=== PATIENT | female | born 1955 | race Caucasian/White ===

== ENCOUNTER 2016-08-13 05:52 | Day surgery (SDC) | payer OTHER ==
[~2016-08-13] VITALS: Ht 165.1 cm; Wt 144.0 kg
[~2016-08-13 05:52] MED LIST: ESTR42.52 VAGINAL; FEXO-15 PO; FLUT9.9S NS; FOSI20TA3 PO; HYDR12.5 PO; INSU100V7 SUBQ; LEVO50TA6 PO; LOVA40TA PO; Lactated Ringer's 1,000 ML IV ONE; MECL-114 PO; METF500T4 PO; METO50TA7 PO
[2016-08-13] MEDS ORDERED: Dexamethasone 4 mg/mL Inj ONE (05:53)
[2016-08-13] MEDS ORDERED: Propofol 10,000 mCg/mL 20 mL Inj ONE (05:53)
[2016-08-13] MEDS ORDERED: fentaNYL-PF 50 mCg/mL 2 mL Inj ONE (05:53)
[2016-08-13] MEDS ORDERED: CeFAZolin Inj 2 GM in IV Premix 1 EACH IV SCH (06:00)
[2016-08-13] MEDS ORDERED: CeFAZolin 2 Gm/50 mL D5W Duplex Bag IV ONE (06:19)
[2016-08-13 06:20] VITALS: BP 156/78; PULSE 92; RESP 16; O2SAT 97
--- NOTE | 2016-08-13 06:46 | PCM.HPANE ---
Patient Data Surgeon Admitting Provider: Attending Provider:Delmer Lake MD Primary Care Physician:Chloe King MD Other Provider:Velma Schaferingham Anesthesia Reason for Visit Left Breast Cancer Ht/WT & BMI Height (Feet): 5 Height (Inches): 5 Weight (Kilograms): 144 Body Mass Index 52.00 Allergies Coded Allergies: No Known Allergies (Unverified , 08/08/16) Past Anesthesia History Anesthesia History: Positive for:: Anesthesia Reactions (AGGRESSION W/ ANESTHETIC (??BEGINS W/ "R"??)), Denies:: Malignant Hyperthermia Diabetes History Hx Diabetes?: Yes Type of Diabetes: Type II Glycemic Control: Insulin & Oral Medication Current Bedside Blood Glucose: 125 MRSA MRSA: No Medications Hypertension Medication: Yes (HCTZ,FOSOPRIL) Home Meds Incl Beta Merrill: Yes Date Beta Merrill Taken: Aug 12, 2016 Time Beta Merrill Taken: 2300 Reported Medications Estradiol (Estrace)42.5 Gm Cream.appl1 G VAGINAL DIRECTED PRN HEALTH #1 TUBE Ref 0 08/08/16 Metoprolol Succinate ER (Toprol XL)50 Mg Drnmbe78 Mg PO BID Ref 0 08/08/16 Fluticasone Propionate (Flonase Allergy Relief)50 Mcg/Actuation [place].susp9.9 Ml NS DAILY 08/08/16 Fexofenadine (Marilee Allergy)60 Mg Fzhjaj58 Mg PO DAILY 08/08/16 Insulin Glargine (Lantus U100 Insulin Vial)100 Unit/Ml Vial55 SUBQ BID #1 VIAL Ref 0 08/02/16 Metformin 500 Mg Oyzytj914 Mg PO BID Ref 0 07/24/16 Meclizine (Bonine)25 Mg Tab.chew25 Mg PO TID PRN prn 07/24/16 Lovastatin 40 Mg Scsufu41 Mg PO HS #30 TABLET Ref 0 07/24/16 Levothyroxine 50 Mcg Iwusvg08 Mcg PO DAILY Ref 0 07/24/16 Hydrochlorothiazide 12.5 Mg Kfsfzcp37.5 Mg PO DAILY 30 Days Ref 0 seasonal in the summer 07/24/16 Fosinopril Sodium 20 Mg Oxmmfw47 Mg PO BID 07/24/16 Discontinued Reported Medications [intramax liq cheikh] No Conflict Check1 Tsp PO DAILY 08/02/16 [vitamin d vegan] No Conflict Check1 [place] PO DAILY 08/02/16 [turkey tail] No Conflict Check1 Capsule PO DAILY 08/02/16 Lactobacillus Acidophilus (Probiotic)1 Each Capsule1 Each PO DAILY 08/02/16 History History of ENT Problems?: Yes HEENT History: Positive for:: Sinus Problem (ENVIRONMENTAL ALLERGIES) Denies:: Hearing Problem (HX OTITIS EXTERNA) Hx of Heart Problems?: Yes Cardiovascular History: Positive for:: Hypertension (HYPERLIPIDEMIA) Valvular Heart Disease (MILD-MOD ) Denies:: Heart Murmur (ECHO 07/2016 EF 60-65%) Hx of Respiratory Problem?: Yes Respiratory History: Denies:: Chest Surgery (S/P BRONCHOSCOPY-DX W/ SARCOIDOSIS IN REQ NO TREATMENT) Use of C-PAP Machine Hx Neurologic Problems?: Yes Hx of GI Problems?: Yes Other GI Pertinent History: UNINTENTIONAL WEIGHT LOSS 10# Hx of Problems?: No Female Hx: Positive for:: Problems with Breasts? (S/P LT BREAST BX LT BREAST CA/IV ACCESS=CURRENT PROBLEM) Denies:: Currently (S/P C/S X2) Endometriosis Skin History: Denies:: History Skin Disorders? Pressure Ulcers Hx Musculoskeletal Problems?: Yes Musculoskeletal History: Positive for:: Musculoskeletal Trauma (C/OF LT HIP PAIN/SCIATICA S/P LT KNEE RPR) Hx of Psycho/Social Problems?: No Hx Surgeries?: Yes (2 c-sect 1981 &1986; knee sx 1991) Hx Any Other Health Problems?: Yes Other History: Positive for:: Cancer (LT BREAST ) Thyroid Disease Denies:: Endocrine Disease Hospitalization History Blood Transfusions: Denies:: Blood Transfusions Hx Diabetes: YesBedside Blood Glucose: 125 Hx Alcohol Use: No Smoking Status: Never Smoker Have You Smoked inLast 12 mo: No Stop/Bang S-Snoring: Do You Snore Loudly: No T-Tired: feel tired, fatigued: Yes O-Obsered: Observed not breath: No P-Blood Pressure: treated: Yes B- Body Mass Index > 35 kg/m2: Yes A- Age over 50: Yes N- Neck Large Circumference: Yes G- Gender Male: No GENOVEVA Total Score: 5 GENOVEVA Risk Assessment: High Risk, =/>3 Yes GENOVEVA Category 4 OutPt Procedure: Yes Risk Assessment Category Category 1A: Patient has history of documented sleep apnea, and HAS NOT received any narcotic, sedative or anesthesia administration during this stay. Category 1B: Patient has history of documented sleep apnea, and HAS received any narcotic , sedative or anesthesia administration during this stay Category 2: Patient has SUSPECTED Obstructive Sleep Apnea, and HAS received any narcotic , sedative or anesthesia administration during this stay. Category 3: Patient has SUSPECTED Obstructive Sleep Apnea and HAS NOT received narcotic, sedative or anesthesia administration during this stay. Category 4: Outpatient in Procedural Areas with known sleep apnea or who screen positive for High Risk via the STOP/BANG questionnaire. Exam Exam Vital Signs Vital Signs Date Time Temp Pulse Resp B/P Pulse Ox O2 Delivery O2 Flow Rate FiO2 08/13/16 06:20 92 16 156/78 97 Room Air General Appearance: Alert, Oriented X3, Cooperative, No Acute Distress HEENT/AIRWAY: MP 2 Lungs: Clear to Auscultation, Normal Air Movement Heart: Exam Unremarkable, Regular Rate/Rhythm, No Murmurs/Rubs/Gallops Meds/Labs/Diagnostics Admission Meds Current Medications Lactated Ringer's (Lr) 1,000 ml @ 120 mls/hr Q8H20M ONCE IV Last administered on 08/13/16t 06:27; Start 08/13/16 at 05:00; Stop 08/13/16 at 13:19 Bedside Blood Glucose: 125 Plan Impression Patient chart reviewed, patient interviewed and anesthestic plan with risks, benefits, and alternatives discussed, and informed consent obtained. NPO Status: 0100 SIPS ASA Physical Status: ASA3 Severe Disease Anesthetic Plan: MAC Bene/Risks/Altern/Consents: Yes HP Complete Prior to Induction: Yes Other obese, hypertensive, GENOVEVA Brittney De Souza MD Aug 13, 2016 06:46
[2016-08-13] MEDS ORDERED: Bupivacaine-MPF 0.5% W/EPI 30 mL Inj INFILTRATE ONE (08:11)
[2016-08-13] MEDS ORDERED: HepLOK Flush 100 unit/mL 5 mL Inj IVFLUSH ONE (08:11)
[2016-08-13] MEDS ORDERED: Lactated Ringer's 1,000 ML IV SCH (08:28)
[2016-08-13] MEDS ORDERED: Lactated Ringer's 500 ML IV PRN (08:28)
[2016-08-13] MEDS ORDERED: fentaNYL-PF 50 mCg/mL 2 mL Inj IVPUSH PRN (08:30)
[2016-08-13] MEDS ORDERED: Dexamethasone 4 mg/mL Inj IVPUSH PRN (08:30)
[2016-08-13] MEDS ORDERED: Phenylephrine 10,000 mCg/mL Inj IVPUSH PRN (08:30)
[2016-08-13] MEDS ORDERED: MetoCLOpramide 5 mg/mL 2 mL Inj IVPUSH PRN (08:30)
[2016-08-13] MEDS ORDERED: Atropine 0.4 mg/mL Inj IVPUSH PRN (08:30)
[2016-08-13] MEDS ORDERED: Ondansetron 2 mg/mL 2 mL Inj IVPUSH PRN (08:30)
[2016-08-13] MEDS ORDERED: Labetalol 5 mg/mL 4 mL Inj IV PRN (08:30)
[2016-08-13] MEDS ORDERED: HYDROmorphone 1 mg/mL Inj IVPUSH PRN (08:30)
[2016-08-13] MEDS ORDERED: EPHEDrine Sulfate 50 mg/mL Inj IVPUSH PRN (08:30)
[2016-08-13] MEDS ORDERED: hydrALAZINE 20 mg/mL Inj IVPUSH PRN (08:30)
--- NOTE | 2016-08-13 08:49 | PCM.DISURG ---
Surgical Discharge Instruction Date of Service Aug 13, 2016 Dates of Hospitalization Date of Hospital Admission Providers Admitting Physician: Primary Care Physician: Chloe King MD Attending Physician: Delmer Lake MD Discharge Diagnosis Discharge Diagnosis Left breast cancer Diet Discharge Diet: No restrictions Activity Discharge Activity-General: No restrictions Dressing and Incisional Care Dressing Care: Allow Steri Stripes to fall off, Remove outer dressing after 24 hrs Hygiene: May shower after (24 hours) Follow Up Plan Follow Up Plan With Dr. Weeks as directed. Follow-up with Dr. Lake is only necessary if there are signs of wound infection. Call your provider for: Fever (over 101.5), Discharge @ incision, pus discharge Delmer Lake MD Aug 13, 2016 08:49
[2016-08-13] MEDS ORDERED: HYDROcodone-APAP 5-325 mg Tablet PO PRN (08:50)
--- NOTE | 2016-08-13 08:52 | PCM.SURGOP ---
Surgical Operative Report Date of Service: Aug 13, 2016 Pre Operative Diagnosis Left breast cancer Post Operative Diagnosis Same Procedure: Tunneled right internal jugular central venous catheter with power port, intraoperative ultrasound guidance, intraoperative fluoroscopy with interpretation Surgeon and Patent Prosecution Attorney: Surgeon: Delmer Lake MD Assistants: None Indication for Procedure 60-year-old woman who was diagnosed with clinical T2 N1 left breast cancer. Plans of the made to treat her with neoadjuvant chemotherapy with the hopes that she may be able to be converted to breast conserving surgery, and if not, that we could coordinate immediate breast reconstruction after mastectomy. After discussion of risks and benefits, she agreed to proceed with Port-A-Cath placement. Findings: The right internal jugular vein was patent and compressible on ultrasound. Procedure Details Procedural sedation was achieved. The right internal jugular vein was assessed with ultrasound, and found to be patent and compressible. The right neck and chest were prepped and draped in wide sterile fashion. A procedural pause was performed according to the SCOAP checklist, and all were found to be in agreement. The patient was placed in Trendelenburg position. The right neck was anesthetized with a mixture of 1% lidocaine with epinephrine and half percent Marcaine with epinephrine. Using ultrasound guidance, the right internal jugular vein was accessed with a finder needle in a single pass. The 0.018 inch wire was passed through the needle, and confirmed with fluoroscopy to be in the inferior vena cava. The micro-sheath was passed over the wire. The wire was removed, and the 0.035 inch wire was passed through the micro-sheath into the inferior vena cava, confirmed with fluoroscopy. The right chest was anesthetized with local anesthetic. A transverse incision was made, and the subcutaneous pocket was created. The port reservoir was sutured to the subcutaneous pocket with 3-0 Vicryl sutures. The tear-away sheath and dilator was passed over the wire into the vena cava, under fluoroscopic guidance. The catheter was then tunneled through the subcutaneous space to the right neck venipuncture site. The catheter was passed through the tear-away sheath and positioned at the cavoatrial junction. The tear-away sheath was removed. The catheter was cut to size, and connected to the port reservoir. The port flushed and aspirated easily. A final fluoroscopic view of the catheter was obtained with the patient flat. The port was flushed with a final heparin flush , 100 units per mL. The subcutaneous pocket and venipuncture site in the neck were closed with running 4-0 Monocryl subcuticular stitches. Steri-Strips and sterile dressings were applied. At the end of the case all needle and sponge counts were correct 2. The patient was awakened from anesthesia without difficulty, and taken to the recovery room in satisfactory condition, having tolerated the procedure well. Complications There were no periprocedural complications identified. Surgical Specimen Removed: No Specimen sent to Pathology: Not applicable Anesthetic Plan: MAC Grafts, Implants: Implants-See Implant Record Output, Estimated Blood Loss: 20 Blood Administration during ortega: No Drains: None Catheters: None copies to: Karson Weaver MD; Chloe King MD, Joshua D MD Aug 13, 2016 08:52
[2016-08-13 08:57] VITALS: BP 174/87; PULSE 82; RESP 16; O2SAT 94
[2016-08-13 09:33] VITALS: BP 172/83; PULSE 80; RESP 16; O2SAT 95
--- NOTE | 2016-08-13 09:46 | PCM.ANEP1 ---
Post Anesthesia Phase 1 PACU Phase 1 Assessment Date of Service: Aug 13, 2016 Vital Signs Vital Signs Date Time Temp Pulse Resp B/P Pulse Ox O2 Delivery O2 Flow Rate FiO2 08/13/16 09:33 80 16 172/83 95 Room Air 08/13/16 08:57 36.3 82 16 174/87 94 Room Air 08/13/16 06:20 92 16 156/78 97 Room Air Anesthetic Administered: MAC Level of Alertness: Awake, talking BACH's with Equal Strength: Yes Pain: No Nausea or Vomiting: No Oxygen Delivery: Simple Mask Lungs: Clear to Auscultation, Normal Air Movement Brittney De Souza MD Aug 13, 2016 09:46
[2016-08-13 09:54] VITALS: BP 163/90; PULSE 78; RESP 16; O2SAT 95
--- NOTE | 2016-08-13 11:58 | PCM.ANEP2 ---
Post Anesthesia Evaluation ASA/CMS Post Anesthesia VS in Patient's Normal Range?: Yes Resp Stable; Airway Patent?: Yes CV Function & Hydration Stable: Yes Mental Status Recovered?: Yes Pain control Satisfactory?: Yes N/V Control Satisfactory?: Yes Brittney De Souza MD Aug 13, 2016 11:58
[2016-08-26] MEDS ORDERED: HYDR-4003 PO (09:13)
[2016-10-15] MEDS ORDERED: [UNRECOGNIZED DRUG - CODE] PO (08:44)
[2016-10-15] MEDS ORDERED: INSU100V7 SUBQ (08:44)
[2016-10-22] MEDS ORDERED: BISM262T15 PO (10:19)
[2016-11-05] MEDS ORDERED: LOPE-147 PO (08:39)
[2016-11-12] MEDS ORDERED: IBUP400T22 PO (08:42)
[2016-11-12] MEDS ORDERED: CEPH-512 PO (12:11)
[2017-01-15] MEDS ORDERED: HYDR12.55 PO (16:10)
[2017-01-15] MEDS ORDERED: FEXO-106 PO (16:10)
== END 2016-08-13 23:59 | disposition home or self-care (01) ==
LOC: SAS 05:52
PROVIDERS: ATTEND Student in an Organized Health Care Education/Training Program
DX: C50.112 Malignant neoplasm of central portion of left female breast (principal); Z17.0 Estrogen receptor positive status [ER+]; E11.9 Type 2 diabetes mellitus without complications; E78.5 Hyperlipidemia, unspecified; J30.9 Allergic rhinitis, unspecified; Z79.84 Long term (current) use of oral hypoglycemic drugs; Z79.4 Long term (current) use of insulin
CPT/HCPCS: 36561; 77001; C1788; J0690; J1100; J1642; J2250; J7120

== ENCOUNTER 2017-02-12 06:55 | Day surgery (SDC) | payer OTHER ==
[~2017-02-12] VITALS: Ht 165.1 cm; Wt 135.0 kg
[2017-02-12] VITALS (11 sets, daily range): BP systolic 136–173; BP diastolic 70–89; PULSE 94–107; RESP 16–21; O2SAT 94–99
[~2017-02-12 06:55] MED LIST changes: -ESTR42.52 VAGINAL; +FEXO-106 PO; -FEXO-15 PO; -FLUT9.9S NS; +HYDR12.55 PO; +LOPE-147 PO; -Lactated Ringer's 1,000 ML IV ONE; +Lactated Ringer's 1,000 ML IV SCH
[2017-02-12] MEDS ORDERED: fentaNYL-PF 50 mCg/mL 2 mL Inj ONE (06:56)
[2017-02-12] MEDS ORDERED: Ondansetron 2 mg/mL 2 mL Inj ONE (06:56)
[2017-02-12] MEDS ORDERED: Ketamine 10 mg/mL 20 mL Inj ONE (06:56)
[2017-02-12] MEDS ORDERED: Glucagon 1 mg/mL Inj ONE (06:56)
[2017-02-12] MEDS ORDERED: Dexamethasone 4 mg/mL Inj ONE (06:56)
[2017-02-12] MEDS ORDERED: Propofol 10,000 mCg/mL 20 mL Inj ONE (06:56)
[2017-02-12] MEDS ORDERED: Lactated Ringer's 1,000 ML IV ONE ×2 (07:17→11:20)
[2017-02-12] MEDS ORDERED: INSU100V7 SUBQ (08:20)
[2017-02-12] MEDS ORDERED: Bupivacaine-MPF 0.25%/EPI 30 mL Inj INFILTRATE ONE (09:29)
[2017-02-12 10:07] LABS: APPEARANCE,URINE HAZY (CLEAR,HAZY); COLOR,URINE STRAW (YELLOW); OCCULT BLOOD,URINE NEGATIVE (NEGATIVE); PH,URINE 5.5 (5.0-8.0); UROBILINOGEN,URINE NORMAL (NORMAL)
[2017-02-12] MEDS ORDERED: HYDROmorphone 0.5 mg/0.5 mL iSecure Syringe IVPUSH PRN (12:10)
[2017-02-12] MEDS ORDERED: MetoCLOpramide 5 mg/mL 2 mL Inj IVPUSH PRN ×2 (12:10→14:05)
[2017-02-12] MEDS ORDERED: HYDROmorphone PCA 0.2 mg/mL 30 mL Inj IV PRN (12:10)
[2017-02-12] MEDS ORDERED: Ondansetron 2 mg/mL 2 mL Inj IVPUSH PRN ×2 (12:10→14:05)
[2017-02-12] MEDS ORDERED: Polyethylene Glycol (PEG) 17 Gm Powder PO PRN (12:10)
--- NOTE | 2017-02-12 12:19 | PCM.SURGOP ---
Surgical Operative Report Date of Service: Feb 12, 2017 Pre Operative Diagnosis Left breast cancer Post Operative Diagnosis Same Procedure: Left skin sparing mastectomy, left axillary lymph node dissection with reverse axillary lymphatic mapping Surgeon and Tour Guide: Surgeon: Delmer Lake MD Assistants: Soren Montana MD PGY-3 Indication for Procedure 61-year-old morbidly obese woman who was diagnosed with clinical T2 N1 left breast cancer. She was treated with neoadjuvant chemotherapy. At the completion of chemotherapy, she had a partial radiographic response, but still had some hazy abnormal-appearing nodes in the left axilla. She was interested in breast reconstruction. After discussion of risks and benefits, she agreed to proceed with left skin sparing mastectomy, left axillary lymph node dissection with reverse lymphatic mapping, and at the same time would be undergoing subpectoral tissue electronic assembler placement by Dr. Conde. Findings: There was at least 1 persistently abnormal lymph node in the left axilla. Procedure Details The patient was marked preoperatively. She was then brought to the operating room where she underwent smooth induction of general anesthesia with an LMA. A Salazar catheter was placed. She was placed in the supine position with both arms out, and was prepped and draped in wide sterile fashion. A procedural pause was performed according to the SCOAP checklist, and all were found to be in agreement. An elliptical transverse incision was made on the left breast, encompassing the nipple areolar complex. Skin flaps are raised superiorly and inferiorly. Circumferential dissection was then carried out, elevating the skin and subcutaneous tissue off the underlying breast capsule. Margins of dissection were the left clavicle, the midline, left inframammary crease, left anterior axillary line. The left breast was then dissected off the underlying chest wall , pectoralis fascia was resected en bloc. Medial lateral perforating vessels were controlled with hemoclips. The left breast was dissected off, oriented with suture, and sent for permanent pathology. During division of the axillary tail, there was a abnormal lymph node which was encountered. This was included later and axillary dissection. Next, the axillary vein was identified and skeletonized. There was an inferior branch off the axillary vein which was divided with the LigaSure device. The left thoracodorsal and long thoracic nerves were identified and preserved. A complete level I and II lymph node dissection was performed. Dissection was performed with the LigaSure device. Beyond the one abnormal node in the axillary tail, there were no definite pathologic nodes. The axillary tissue was swept out of the apex of the axilla, and following nerves inferiorly, complete dissection was performed to the chest wall. That tissue was sent for permanent pathology, labeled as left axillary lymph node dissection. Hemostasis was adequate. At this point, Dr. Conde performed subpectoral tissue electronic assembler placement and BARB drain placement. Please see his separate dictated operative report for full details. At the end the case all needle and sponge counts were correct 2. The Salazar catheter was removed. The patient was awakened from anesthesia without difficulty, and taken to the recovery room in satisfactory condition, having tolerated the procedure well. Complications There were no periprocedural complications identified. Surgical Specimen Removed: Yes Specimen sent to Pathology: Yes Surgical Specimen description: Left breast. Left axillary lymph node dissection. Anesthetic Plan: GA Grafts, Implants: Implants-See Implant Record Output, Estimated Blood Loss: 50 Blood Administration during ortega: No Drains: BARB Drain #1 Catheters: Urethral 2 Way Salazar copies to: King Conde MD; Karson Weaver MD; Chloe King MD, Joshua D MD Feb 12, 2017 12:19
[2017-02-12] MEDS ORDERED: Bacitracin 50,000 unit Inj IRRIGATION ONE (12:23)
[2017-02-12] MEDS ORDERED: Lactated Ringer's 1,000 ML IV SCH (14:02)
[2017-02-12] MEDS ORDERED: Lactated Ringer's 500 ML IV PRN (14:02)
[2017-02-12] MEDS ORDERED: EPHEDrine Sulfate 50 mg/mL Inj IVPUSH PRN (14:05)
[2017-02-12] MEDS ORDERED: fentaNYL-PF 50 mCg/mL 2 mL Inj IVPUSH PRN (14:05)
[2017-02-12] MEDS ORDERED: HYDROmorphone 1 mg/mL Inj IVPUSH PRN (14:05)
[2017-02-12] MEDS ORDERED: Phenylephrine 10,000 mCg/mL Inj IVPUSH PRN (14:05)
[2017-02-12] MEDS ORDERED: Dexamethasone 4 mg/mL Inj IVPUSH PRN (14:05)
--- NOTE | 2017-02-12 14:58 | PCM.HPANE ---
Patient Data Surgeon Admitting Provider: Attending Provider:King Conde MD Primary Care Physician:Chloe King MD Other Provider:Velma Schaferingham Anesthesia Reason for Visit Left Breast Cancer Ht/WT & BMI Height (Feet): 5 Height (Inches): 5.00 Weight (Kilograms): 135 Body Mass Index 49.00 Allergies Coded Allergies: No Known Allergies (Unverified , 08/08/16) Past Anesthesia History Anesthesia History: Positive for:: Abnormal Airway (small opening, fragile teeth), Anesthesia Reactions (bronchoscopy- had aggressive response to med starting with letter R), Difficult Intubation, Denies:: Fam Anesthesia Reaction, Malignant Hyperthermia Diabetes History Hx Diabetes?: Yes (TYPE II W INSULIN) Type of Diabetes: Type II Glycemic Control: Insulin & Oral Medication Current Bedside Blood Glucose: 157 MRSA MRSA: No Medications Hypertension Medication: Yes Home Meds Incl Beta Merrill: Yes (METOPROLOL) Date Beta Merrill Taken: Feb 12, 2017 Time Beta Merrill Taken: 0700 Reported Medications Insulin Glargine (Lantus U100 Insulin Vial)100 Unit/Ml Vial50 Unit SUBQ am #1 VIAL Ref 0 02/12/17 Hydrochlorothiazide 12.5 Mg Dfksdd45.5 Mg PO DAILY Ref 0 01/15/17 Fexofenadine 180 Mg Lqprin083 Mg PO DAILY 01/15/17 Loperamide HCl (Imodium A-D)2 Mg Capsule2-4 Mg PO DAILY PRN prn 11/05/16 Insulin Glargine (Lantus U100 Insulin Vial)100 Unit/Ml Vial50 Unit SUBQ HS PRN prn Ref 0 10/15/16 Metoprolol Succinate ER (Toprol XL)50 Mg Nyqovc04 Mg PO DAILY Ref 0 08/08/16 Metformin 500 Mg Ghqstv735 Mg PO DAILY Ref 0 07/24/16 Lovastatin 40 Mg Whddul32 Mg PO HS #30 TABLET Ref 0 07/24/16 Levothyroxine 50 Mcg Tvbsyy81 Mcg PO DAILY Ref 0 07/24/16 Fosinopril Sodium 20 Mg Uwxgzv92 Mg PO DAILY 07/24/16 Discontinued Reported Medications Insulin Glargine (Lantus U100 Insulin Vial)100 Unit/Ml Vial46 SUBQ am #1 VIAL Ref 0 08/02/16 Meclizine (Bonine)25 Mg Tab.chew25 Mg PO TID PRN prn 07/24/16 Hydrochlorothiazide 12.5 Mg Ozozkry50.5 Mg PO DAILY 30 Days Ref 0 seasonal in the summer 07/24/16 History History of ENT Problems?: Yes HEENT History: Positive for:: Cataracts (needs surgery for (bilateral)) Sinus Problem (seasonal allergies) Denies:: Glaucoma Hearing Problem Denture Type: None Teeth Condition: Tooth Decay Hx of Heart Problems?: Yes Cardiovascular History: Positive for:: Hypertension Valvular Heart Disease (echo 11/2016%) Denies:: Atrial Fibrillation Chest Pain Congestive Heart Failure Coronary Artery Disease Edema Heart Murmur Irregular Heartbeat Hx of Respiratory Problem?: Yes Respiratory History: Denies:: Chest Surgery Emphysema Oxygen Administration Pneumonia Tuberculosis Use of C-PAP Machine Other Resp Pertinent History: level 2 sarcoidosis, 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 Skin History: Denies:: History Skin Disorders? Pressure Ulcers Hx Musculoskeletal Problems?: Yes Musculoskeletal History: Positive for:: Degenerative Joint Osteoarthritis (bilateral knees- prior knee scopes ) Denies:: Fibromyalgia Musculoskeletal Trauma Myasthenia Gravis Systemic Lupus Hx of Psycho/Social Problems?: No Hx Surgeries?: Yes (2 c-sect 1981 &1986; knee sx 1991) Hx Any Other Health Problems?: Yes Other History: Positive for:: Cancer (LT BREAST ) Thyroid Disease (on med ) Denies:: Endocrine Disease Hospitalization History Blood Transfusions: Positive for:: Accept Blood Products? Denies:: Blood Transfusions Hx Diabetes: Yes (TYPE II W INSULIN)Bedside Blood Glucose: 157 Hx Alcohol Use: NoHx Substance Use: No Smoking Status: Never Smoker Have You Smoked inLast 12 mo: No Stop/Bang Treated for Sleep Apnea?: No Do You Have a CPAP Machine?: No S-Snoring: Do You Snore Loudly: No T-Tired: feel tired, fatigued: No O-Obsered: Observed not breath: No P-Blood Pressure: treated: Yes B- Body Mass Index > 35 kg/m2: Yes A- Age over 50: Yes N- Neck Large Circumference: Yes G- Gender Male: No GENOVEVA Total Score: 4 GENOVEVA Risk Assessment: High Risk, =/>3 Yes Risk Assessment Category Category 1A: Patient has history of documented sleep apnea, and HAS NOT received any narcotic, sedative or anesthesia administration during this stay. Category 1B: Patient has history of documented sleep apnea, and HAS received any narcotic , sedative or anesthesia administration during this stay Category 2: Patient has SUSPECTED Obstructive Sleep Apnea, and HAS received any narcotic , sedative or anesthesia administration during this stay. Category 3: Patient has SUSPECTED Obstructive Sleep Apnea and HAS NOT received narcotic, sedative or anesthesia administration during this stay. Category 4: Outpatient in Procedural Areas with known sleep apnea or who screen positive for High Risk via the STOP/BANG questionnaire. Exam Exam Vital Signs Vital Signs Date Time Temp Pulse Resp B/P Pulse Ox O2 Delivery O2 Flow Rate FiO2 02/12/17 14:40 96 20 147/78 96 Nasal Cannula 02/12/17 14:25 94 20 152/77 96 Nasal Cannula 02/12/17 14:10 98 18 136/75 94 Nasal Cannula 3 02/12/17 13:55 98 19 143/75 96 Simple Mask 10 02/12/17 13:50 104 18 147/89 97 Simple Mask 10 02/12/17 13:45 107 21 136/80 96 Simple Mask 10 02/12/17 13:40 37.4 100 19 146/85 97 Simple Mask 10 02/12/17 07:39 36.7 101 17 154/82 94 Room Air General Appearance: Alert, Oriented X3, Cooperative, No Acute Distress HEENT/AIRWAY: MP 2 Lungs: Clear to Auscultation, Normal Air Movement Heart: Exam Unremarkable, Regular Rate/Rhythm, No Murmurs/Rubs/Gallops Meds/Labs/Diagnostics Admission Meds Current Medications Lactated Ringer's (Lr) 1,000 ml @ ud STK-MED ONCE IV Last administered on 07:17; Start 02/12/17 at 07:17; Stop 02/12/17 at 07:18; Status DC Bupivacaine HCl/ Epinephrine Bitart (Sensorcaine-MPF 0.25%/EPI Inj) 30 ml STK- MED ONCE INFILTRATE Last administered on 02/12/17 09:29; Start 02/12/17 at 09:29 ; Stop 02/12/17 at 09:49; Status DC Methylene Blue (Methylene Blue 1% Inj) 10 ml STK-MED ONCE XX Last administered on 02/12/17 09:00; Start 02/12/17 at 09:00; Stop 02/12/17 at 09:49; Status DC Cefazolin Sodium 2 gm 2 gm STK-MED ONCE IVPUSH Last administered on 02/12/17 08 :45; Start 02/12/17 at 08:45; Stop 02/12/17 at 09:53; Status DC Lactated Ringer's (Lr) 1,000 ml @ ud STK-MED ONCE IV Last administered on 11:20; Start 02/12/17 at 11:20; Stop 02/12/17 at 11:37; Status DC Bacitracin (Bacitracin Inj) 50,000 unit STK-MED ONCE IRRIGATION Last administered on 02/12/17 12:23; Start 02/12/17 at 12:23; Stop 02/12/17 at 12:28; Status DC Cefazolin Sodium (Ancef Inj) 2 gm STK-MED ONCE IVPUSH Last administered on 12:45; Start 02/12/17 at 12:45; Stop 02/12/17 at 13:06; Status DC Bedside Blood Glucose: 157 Labs Test 02/12/17 09:34 Urine Color Straw (YELLOW) Urine Appearance Hazy (CLEAR,HAZY) Urine pH 5.5 (5.0-8.0) Urine Specific [place] 1.010 (1.003-1.035) Urine Protein Negativemg/dL (NEG,TRACE) Urine Glucose (UA) Negativemg/dL (NEGATIVE) Urine Ketones Negativemg/dL (NEGATIVE) Urine Occult Blood Negative (NEGATIVE) Urine Nitrite Negative (NEGATIVE) Urine Bilirubin Negative (NEGATIVE) Urine Urobilinogen Normalmg/dL (NORMAL) Urine Leukocyte Esterase Negative (NEGATIVE) Urine RBC 0-2/hpf (0-2) Urine WBC 0-5/hpf (0-5) Urine Epithelial Cells Occasional/hpf (NONE-MOD) Urine Crystals None seen (NONE SEEN) Urine Bacteria Few/hpf (NONE-FEW) Urine Hyaline Casts None/lpf (NONE) Urine Granular Casts None seen (NONE SEEN) Urine Waxy Casts None seen (NONE SEEN) Urine Red Blood Cell Casts None seen (NONE SEEN) Urine White Blood Cell Casts None seen (NONE SEEN) Urine Mucus None seen (None Seen) Urine Trichomonas None seen (NONE SEEN) Urine Yeast None (NONE SEEN) Urinalysis Comment None Urine Culture Reflexed Not indicated Plan Impression Patient chart reviewed, patient interviewed and anesthestic plan with risks, benefits, and alternatives discussed, and informed consent obtained. NPO per Anesth. Guidelines: Yes ASA Physical Status: ASA3 Severe Disease Anesthetic Plan: GA Bene/Risks/Altern/Consents: Yes HP Complete Prior to Induction: Yes Segundo Vanegas MD Feb 12, 2017 14:58
--- NOTE | 2017-02-12 15:00 | PCM.ANEP1 ---
Post Anesthesia PACU Phase 1 Assessment Vital Signs Vital Signs Date Time Temp Pulse Resp B/P Pulse Ox O2 Delivery O2 Flow Rate FiO2 02/12/17 14:40 96 20 147/78 96 Nasal Cannula 02/12/17 14:25 94 20 152/77 96 Nasal Cannula 02/12/17 14:10 98 18 136/75 94 Nasal Cannula 3 02/12/17 13:55 98 19 143/75 96 Simple Mask 10 02/12/17 13:50 104 18 147/89 97 Simple Mask 10 02/12/17 13:45 107 21 136/80 96 Simple Mask 10 02/12/17 13:40 37.4 100 19 146/85 97 Simple Mask 10 02/12/17 07:39 36.7 101 17 154/82 94 Room Air Anesthetic Administered: GA Level of Alertness: Awake, talking BACH's with Equal Strength: Yes Pain: No Nausea or Vomiting: No CV Function & Hydration Stable: Yes Airway Device: Oralpharangeal Airway Oxygen Delivery: Simple Mask Lungs: Clear to Auscultation, Normal Air Movement Dermatome Level: Full Sensation PACU Phase 2 Assessment Complications: No Follow up Care: No Patient Instructions Provided: N/A Segundo Vanegas MD Feb 12, 2017 15:00
[2017-02-12] MEDS ORDERED: Insulin GLARgine 100 Unit/mL Syringe SUBQ PRN (15:05)
[2017-02-12] MEDS ORDERED: Artificial Tears 15 mL Ophthalmic Solution BOTH_EYES PRN (15:10)
[2017-02-12] MEDS ORDERED: Sodium Chloride NAS 45 mL Spray NASAL PRN (15:10)
[2017-02-12] MEDS: Lactated Ringer's 1,000 ML IV SCH (15:26)
[2017-02-12] MEDS: Insulin LISPRO Low-Dose Scale SUBQ SCH ×2 (17:50→21:18)
--- NOTE | 2017-02-12 18:19 | NUR ---
Post op note- Patient received from PACU . Alert and oriented. Complaining of right chest incision pain and nausea. NURSE OFFICE Dilaudid started and after patient received a few doses she thought the Dilaudid was causing the nausea. Med for nausea given and effective. NURSE OFFICE dc'd per order and oral pain med started. Patient denies further nausea. BARB draining sero/sang. drainage. Patient up to bathroom to void. Oriented patient to room, call light,etc.
[2017-02-12] MEDS: Artificial Tears 15 mL Ophthalmic Solution BOTH_EYES SCH (20:30)
[2017-02-13 00:32] VITALS: BP 136/71; PULSE 88; RESP 18; O2SAT 93
[2017-02-13] MEDS: Lactated Ringer's 1,000 ML IV SCH (04:51)
[2017-02-13 05:23] VITALS: BP 127/69; PULSE 84; RESP 18; O2SAT 94
--- NOTE | 2017-02-13 05:36 | NUR ---
Pain/Teaching pt with intermittent incisional pain at 4-5/10. Oxycodone 5mg given PRN and pt reports good pain relief. Pt was instructed about BARB drain care with explanation and return demo.
[2017-02-13 07:50] VITALS: BP 115/67; PULSE 82; RESP 20; O2SAT 96
[2017-02-13] MEDS: Insulin LISPRO Low-Dose Scale SUBQ SCH ×2 (07:58→11:55)
[2017-02-13] MEDS: Artificial Tears 15 mL Ophthalmic Solution BOTH_EYES SCH (08:02)
[2017-02-13] MEDS ORDERED: Insulin GLARgine 100 Unit/mL Syringe SUBQ SCH (08:30)
[2017-02-13] MEDS ORDERED: MeTOProlol XL 50 mg ER24 Tablet PO SCH (08:30)
[2017-02-13 09:31] VITALS: BP 126/70; PULSE 85; RESP 18; O2SAT 97
--- NOTE | 2017-02-13 11:49 | PCM.PNSURG ---
Subjective Date of Service: Feb 13, 2017 Visit Information: Reason for Visit Left Breast Cancer Surgery/Surgery Date Post-Op Day # Date of Admission: Hospital Day # Subjective: no acute overnight events patient endorses minimal pain, however, the most lateral portion of her incision is "sore." Nausea from yesterday afternoon has entirely resolved Tolerating PO intake without issue Voiding Feels ready to go home Objective Vital Sign- Last 8 Hours Date Time Temp Pulse Resp B/P Pulse Ox O2 Delivery O2 Flow Rate FiO2 02/13/17 09:31 36.8 85 18 126/70 97 Room Air 02/13/17 07:50 36.7 82 20 115/67 96 Room Air 02/13/17 05:23 36.6 84 18 127/69 94 Room Air Intake and Output- Last 8 Hour 02/13/17 Cumulative From/Thru 07:00 02/05/17 16:41 - 02/13/17 05:23 Intake Total 2017 ml 3917 ml Output Total 1835 ml 2675 ml Balance 182 ml 1242 ml Intake Oral 1037 ml 1037 ml IV Total 980 ml 2880 ml Output Urine Total 1700 ml 2300 ml Drainage Total 135 ml 225 ml Estimated Blood Loss 150 ml # Voids 1 # Bowel Movements 0 0 General: Alert, Oriented X3, No Acute Distress Lungs: Normal Air Movement Heart: Exam Unremarkable SURGICAL WOUND : Wound Location/Description Left breast trasverse incision c/d/i. Some surrounding ecchymosis in the dependent portion of her wound. BARB drain with SS output, stripped, no clot. Left breast overall soft without evidence of hematoma. Assessment & Plan Impression POD#1 s/p simple mastectomy, axillary LN dissection, and placement of tissue surveyor. Convalescing appropriately without clinical concern. Problems: Plan - Continue PO pain medications. Rx for narcotics written for home. - Keep wound c/d/i - Needs drain teaching and drain log - Consider PT given left axillary dissection - Follow up with Dr. Lake in 7-10 days. - Outpatient abx and drain care per Dr. Conde. Antony Montana MD Feb 13, 2017 11:49
--- NOTE | 2017-02-13 12:24 | PCM.DISURG ---
Surgical Discharge Instruction Date of Service Feb 13, 2017 Dates of Hospitalization Date of Hospital Admission 02/12/2017 Providers Admitting Physician: Primary Care Physician: Chloe King MD Attending Physician: King Conde MD Discharge Diagnosis Discharge Diagnosis 1. Status post Left skin sparing mastectomy, left axillary lymph node dissection with reverse axillary lymphatic mapping 2. Status post left breast reconstruction with tissue material handling crew supervisor Post Operative diagnosis Same Diet Discharge Diet: No restrictions Activity Discharge Activity-General: Activity as energy allows Dressing and Incisional Care Dressing Care: Change soiled dressing (around strain.), Other (strip, record output, & empty drain daily or as needed.) Hygiene: May shower, NO bathtub, hot tub or whirlpool Additional Instructions Discharge Instructions Dr. Conde gave specific instructions to the patient which she verbalized understanding regarding her postoperative care and follow-up. Follow Up Plan Follow Up Plan 1. Follow-up outpatient with Gen. surgery physician reference assistant and 7-10 days. 2. Follow-up outpatient with Dr. Conde in 2 weeks or sooner for drain removal if output less than 20 mL per day. Follow-up Provider (F9): King Conde MD Mid-level Provider (F9): Ankit Dee PA-C Call your provider for: Fever, Chills, Shortness of breath, Increasing abdominal pain, Nausea, Vomiting, Wound redness, Increasing wound pain, Warmth to touch, Discharge @ incision, pus discharge Sarbjit Martins PA-C Feb 13, 2017 12:24
--- NOTE | 2017-02-13 12:53 | NUR ---
Social Work- Multi-Disciplinary Rounds/ Discharge EMR reviewed. Pt is a 61 year old female admitted [place] [facility] [place] [facility] [place] Pt's insurance is [facility] Federal [employer] Plan. Surgery is primary service. Per rounds with tetryl wringer operator and UR RN pt is s/p left mastectomy with contracts officer. Pt is anticipated to discharge today. Discharge orders are active. No discharge needs identified. SW will follow if needs arise. Smita Rivera MSW
--- NOTE | 2017-02-13 14:07 | NUR ---
Discharge: Pt discharged home with all belonging with at 1320. Explained BARB care, medications, and follow up appointments. Pt demonstrated BARB care and understood new and home medications. All questions answered.
--- NOTE | 2017-02-13 19:35 | PCM.DC.SUR ---
Discharge Summary Date of Service: Feb 13, 2017 Date of Hospital Admission: February 12, 2017 Date of Discharge: Feb 13, 2017 at 13:15 Brief History and Physical: 61-year-old morbidly obese woman who was diagnosed with clinical T2 N1 left breast cancer. She was treated with neoadjuvant chemotherapy. At the completion of chemotherapy, she had a partial radiographic response, but still had some hazy abnormal-appearing nodes in the left axilla. She was interested in breast reconstruction. After discussion of risks and benefits, she agreed to proceed with left skin sparing mastectomy, left axillary lymph node dissection with reverse lymphatic mapping, and at the same time would be undergoing subpectoral tissue machine cleaner placement by Dr. Conde. Hospital Course: The patient was admitted following uncomplicated operation involving the above stated procedure. She recovered from a general anesthetic in the PACU and was then transferred to the general surgery floor for intensive nursing care and observation. On the afternoon of POD#0 she experienced some nausea and vomiting. This was attributed to the COLLECTION SYSTEMS ADMINISTRATOR so she was switched to PO oxycodone and her symptoms resolved. She then was able to resume PO intake without any issue. She voiding spontaneously, passed flatus, and was ambulatory. Her pain was well controlled on the PO only regimen. She remained hemodynamically stable overnight. On exam, her incisions was c/d/i and her drain had an appropriate amount of serosanguinous output. She was deemed stable for a safe discharge to home. She was given strict return precautions and prescriptions for clindamycin and pain meds. She will follow in [facility] in 7-10 days. Fexofenadine (Fexofenadine) 180 Mg Tablet 180 MG PO DAILY (Reported) Fosinopril Sodium (Fosinopril Sodium) 20 Mg Tablet 20 MG PO DAILY (Reported) Hydrochlorothiazide (Hydrochlorothiazide) 12.5 Mg Tablet 12.5 MG PO DAILY ( Reported) Insulin Glargine (Lantus U100 Insulin Vial) 100 Unit/Ml Vial 50 UNIT SUBQ HS PRN PRN prn (Reported) Insulin Glargine (Lantus U100 Insulin Vial) 100 Unit/Ml Vial 50 UNIT SUBQ am ( Reported) Levothyroxine (Levothyroxine) 50 Mcg Tablet 50 MCG PO DAILY (Reported) Loperamide HCl (Imodium A-D) 2 Mg Capsule 2-4 MG PO DAILY PRN PRN prn (Reported ) Lovastatin (Lovastatin) 40 Mg Tablet 40 MG PO HS (Reported) Metformin (Metformin) 500 Mg Tablet 500 MG PO DAILY (Reported) Metoprolol Succinate ER (Toprol XL) 50 Mg Tablet 50 MG PO DAILY (Reported) Antony Montana MD Feb 13, 2017 19:35
--- NOTE | 2017-02-14 16:41 | OP ---
[address] [address] OPERATIVE REPORT PATIENT: PEPE YOUNG : 1955 MR#: [id number] ADMIT: 02/12/2017 JOB ID: [id number] DATE OF SURGERY: 02/12/2017 PREOPERATIVE DIAGNOSIS(ES): 1. Left-sided breast cancer. 2. Status post left-sided mastectomy. POSTOPERATIVE DIAGNOSIS(ES): PROCEDURE: 1. Immediate left breast reconstruction with tissue turret lathe machinist placement. 2. Placement of AlloDerm. SURGEON: King Conde MD. SENIOR TECHNICAL RECRUITER: Ankit Dee PA-C, who was present for necessary retraction, exposure, and closure of the incisions. ANESTHESIA: General anesthesia. ESTIMATED BLOOD LOSS: Minimal for plastic surgery portion of the procedure. SPECIMEN: None. DRAINS: #15 round Salazar drain x1. IMPLANTS: 1. Allergan style MV133, 15 cm tissue turret lathe machinist x1, filled to 600 cc. 2. AlloDerm, 6 x 16 cm thick. COMPLICATIONS: None apparent. INDICATIONS FOR PROCEDURE: This is a 61-year-old female patient with left-sided breast cancer. The patient will undergo a left-sided mastectomy with axillary lymph node dissection. Immediate breast reconstruction is indicated. PROCEDURES AND FINDINGS: The patient was identified in the preoperative area and surgical site was marked. With the patient in sitting position, I marked the incision for general surgeon to perform a mastectomy which included the nipple-areolar complex and a small amount of surrounding skin. Patient's excess breast skin was also marked with the patient in sitting position. Inframammary fold was marked. Midline was marked. The lateral border of the breast was also marked. The patient was then taken back to the operating room and placed supine on the operating table. Appropriate time-outs were taken. General anesthesia was induced smoothly. At this point I briefly prepped some of the important markings that I made preoperatively. Kellen were placed into these areas to prevent the marking from being completely obliterated during the general surgical portion of the procedure. At this point, Dr. Lake presented and proceeded with his portion of the procedure. I returned to the operating room after the mastectomy as well as the axillary lymph node dissection had been completed. At this point, I examined the skin flap which was found to be viable. There was minimal bleeding. I first turned my attention to accessing the subpectoral plane. The lateral border of the pectoralis major muscle was identified. I bluntly accessed the subpectoral plane, first with my fingers. I then and completely developed a plane with electrocautery to the sternal attachment of the pectoralis major muscle. Inferiorly, the desired inframammary fold was confirmed. I deepened the incision down through the subcutaneous tissue and then through the pectoralis major muscle until I encountered the subpectoral plane or the extension of the fascial plane that does become the subpectoral plane. This allowed me to detach the costal attachment of the pectoralis major muscle for approximately 2 cm or so from the sternal junction. Hemostasis was obtained with electrocautery. At this point, an AlloDerm was obtained. It was then sutured along the inframammary fold starting at the medial cut edge of the pectoralis major muscle. It was then sutured along the inframammary fold. Laterally, I sutured the AlloDerm along the lateral border of the breast which was marked preoperatively. Suturing was done with 2-0 PDS [id number] sutures. Excess AlloDerm was trimmed and removed. After this has been done, the Allergan style 133, 15 cm tissue turret lathe machinist was obtained. Air was removed. It was then placed into the subpectoral pocket and underneath the AlloDerm. The free edge of the AlloDerm and free edge of the pectoralis major muscle was then reapproximated with several 3-0 Vicryl [id number] sutures. Once this has been done, the tissue turret lathe machinist was expanded to 600 cc. During the expansion process, the suture lines were frequently checked and were found to be secure and intact. Once this has been done, a drain was placed along the inframammary fold and routed into the surgical site for the axillary lymph node dissection. It was then routed out through a separate lateral stab incision. The drain was then secured with a 3-0 nylon drain stitch. At this point, excess skin was marked with tailor tack method using a skin stapler. Once this had been done, the incisions were then made along the marked excess skin. Incision was made just through the dermis. The excess skin was then de-epithelialized. There was approximately 4 cm of de-epithelialized skin flap on the superior side. Inferiorly, the de-epithelialized portion was approximately 2 cm. I first turned my attention medially. Excess medial soft tissue and de-epithelialized skin flap was then secured to the chest wall with one 3-0 Vicryl simple interrupted suture. This is to secure the soft tissue in the space between the skin flap and the medial end of the pectoralis major muscle to fill in the space in the area. Laterally, a similar stitch was used to secure the lateral excess soft tissue to the junction between the reconstruction and the lateral chest wall again to provide some fullness in this area. The de-epithelialized skin flap was then sutured to the inferior flap again to double up the soft tissue in this area. Once this has been done, the incision was then reapproximated first with a layer of 3-0 Monocryl deep dermal suture, followed by 4-0 Monocryl running subcuticular suture. The patient tolerated the procedure well. Needle count, sponge count, instrument counts were correct at the end of the procedure. The patient was extubated and transported to recovery in stable condition.
[2017-02-18] MEDS ORDERED: ACET-171 PO (10:42)
[2017-02-18] MEDS ORDERED: OXYC10TA69 PO (10:42)
== END 2017-02-13 13:15 | disposition home or self-care (01) ==
LOC: SAS 06:55 → OSC 14:14 → SAS 02-13 13:15
PROVIDERS: ATTEND Plastic Surgery
DX: C50.112 Malignant neoplasm of central portion of left female breast (principal); I10 Essential (primary) hypertension; E11.9 Type 2 diabetes mellitus without complications; E78.5 Hyperlipidemia, unspecified; M19.90 Unspecified osteoarthritis, unspecified site; E03.9 Hypothyroidism, unspecified; E66.01 Morbid (severe) obesity due to excess calories; Z92.21 Personal history of antineoplastic chemotherapy; Z79.4 Long term (current) use of insulin; Z79.84 Long term (current) use of oral hypoglycemic drugs; Z68.42 Body mass index [BMI] 45.0-49.9, adult; Z17.0 Estrogen receptor positive status [ER+]
CPT/HCPCS: 15271; 19303; 19357; 38525; 81000; 94640; J0690; J1100; J1610; J1815; J2250; J2405; J2765; J3010; J7120; Q4116

== ENCOUNTER 2017-05-06 04:57 | Emergency (ER) | payer OTHER ==
[~2017-05-06] VITALS: Ht 167.6 cm; Wt 128.2 kg
[~2017-05-06 04:57] MED LIST changes: +ACET-171 PO; -HYDR12.5 PO; +INSU100I30 SQ; -INSU100V7 SUBQ; -LOPE-147 PO; -Lactated Ringer's 1,000 ML IV SCH; -MECL-114 PO
[2017-05-06 05:11] VITALS: BP 175/109; PULSE 103; RESP 20; O2SAT 95
--- NOTE | 2017-05-06 06:11 | ED.REPORT ---
HPI-Abd Pain F 40 and Over Date of Service May 06, 2017 ED Provider: Jesus Cunha MD Patient is a 61 year old female with a hx of DM, HTN, and breast cancer who presents to the ED complaining of dysuria onset last night. Pt also complains of vaginal itching for the past 1-2 weeks. Associated symptoms include decreased urination, nausea, and back pain. She denies fevers, vomiting, or any other symptoms. Pt is currenyly recieving radiation for breast cancer. Nursing Notes Stated Complaint: POSS UTI Chief Complaint: Female Abdominal Pain Nursing Notes Reviewed: Yes Allergies: Coded Allergies: No Known Allergies (Unverified , 05/06/17) Scheduled Fexofenadine (Fexofenadine) 180 Mg Tablet 180 MG PO DAILY Fosinopril Sodium (Fosinopril Sodium) 20 Mg Tablet 20 MG PO DAILY Hydrochlorothiazide (Hydrochlorothiazide) 12.5 Mg Tablet 12.5 MG PO prn Insulin Glargine,Hum.rec.anlog (Basaglar Kwikpen U-100) 100 Unit/Ml (3 Ml) Insuln.pen 50-55 UNIT SQ BID Levothyroxine (Levothyroxine) 50 Mcg Tablet 50 MCG PO DAILY Lovastatin (Lovastatin) 40 Mg Tablet 40 MG PO HS Metformin (Metformin) 500 Mg Tablet 500 MG PO BID Metoprolol Succinate ER (Toprol XL) 50 Mg Tablet 50 MG PO DAILY Nitrofurantoin Monohyd/M-Cryst (MacroBid) 100 Mg Capsule 100 MG PO BID Scheduled PRN Acetaminophen (Acetaminophen) 500 Mg Tablet 250 MG PO q4hrs PRN PRN oain General Time Seen by MD: 06:03 Chief Complaint Dysuria Hx Obtained From: Patient Arrived By: Walk-in Sudden in Onset?: Yes Onset Occurred: 5 - 8 hours ago Symptom Duration: Since onset Similar Sx Previous: Yes Risk Factors )( AAA Risk Stratification Hypertension Risk factors reviewed Past Medical History Aggressive reaction to anesthesia starting with letter "R" Past Medical History HTN thyroid disease valvular heart disease DJD DM difficult intubation Past Surgical History Knee surg Mastectomy Reports: (x2) Smoking History Never Smoker Social History Other Social History: Ambulatory Status Independent Review of Systems +vaginal itching Constitutional: Denies: Fever GI: Reports: Nausea, Denies: Vomiting Female: Reports: Dysuria, Urination decreased Musculoskeletal: Reports: Back pain Complete sys rev & neg: except as marked. Physical Exam Vital Signs Vital Signs (First) Date Time Temp Pulse Resp B/P Pulse Ox O2 Delivery O2 Flow Rate FiO2 05/06/17 05:11 36.6 103 20 175/109 95 Room Air Initial VS: Reviewed, Vital signs abnormal Head / Eyes: Atraumatic, Normocephalic Neck: Full range of motion Skin: Warm, Dry Neurologic: Alert, Oriented, Nonfocal General/Constitutional: Awake, Alert, No acute distress Respiratory / Chest: Atraumatic, Breath sounds NL, Breath sounds = bilat, No respiratory distress Cardiovascular: Heart rate NL, Regular rhythm, Heart sounds NL Abdomen: Atraumatic, Soft, Non-tender Back: Full range of motion Interpretation & Diagnostics Lab Results Interpretation Test 05/06/17 05:00 Urine Color Straw (YELLOW) Urine Appearance Cloudy (CLEAR,HAZY) Urine pH 6.0 (5.0-8.0) Urine Specific Sunset 1.010 (1.003-1.035) Urine Protein 100mg/dL (NEG,TRACE) Urine Glucose (UA) Negativemg/dL (NEGATIVE) Urine Ketones Negativemg/dL (NEGATIVE) Urine Occult Blood Moderate (NEGATIVE) Urine Nitrite Negative (NEGATIVE) Urine Bilirubin Negative (NEGATIVE) Urine Urobilinogen Normalmg/dL (NORMAL) Urine Leukocyte Esterase Large (NEGATIVE) Urine RBC 3-10/hpf (0-2) Urine WBC 11-50/hpf (0-5) Urine Epithelial Cells Occasional/hpf (NONE-MOD) Urine Crystals None seen (NONE SEEN) Urine Bacteria Moderate/hpf (NONE-FEW) Urine Hyaline Casts None/lpf (NONE) Urine Granular Casts None seen (NONE SEEN) Urine Waxy Casts None seen (NONE SEEN) Urine Red Blood Cell Casts None seen (NONE SEEN) Urine White Blood Cell Casts None seen (NONE SEEN) Urine Mucus None seen (None Seen) Urine Trichomonas None seen (NONE SEEN) Urine Yeast None (NONE SEEN) Urinalysis Comment None Urine Culture Reflexed Indicated Re-Eval/Medical Decision Re-Evaluation/Progress : Time of Eval: 06:28 )( Re-Eval Abdomen: Soft Re-Evaluation/Progress Note: Discussed UA results, plan for abx, nausea medication, and discharge. Patient understands and agrees with plan. All questions addressed at this time. Counseled Regarding: Diagnosis, Lab results, Need for follow-up, When/why to return to ED Discharge & Departure Primary Impression: Urinary tract infection Urinary tract infection type: acute cystitis Hematuria presence: without hematuria Qualified Code: N30.00 - Acute cystitis without hematuria Disposition: Home Patient Instructions: Urinary Tract Infection in Women (ED) Additional Instructions: Take the antibiotic as prescribed, drink plenty of water. Use phenazopyridine ( [id number]) to help with burning and discomfort with urination. Follow up right away for high fever or excessive vomiting. You should feel better within the next 24 hours. Referrals: Chloe King MD (PCP) Madelynibluis Attestation Portions of this note were transcribed by Markus Taylor. I, Dr. Cunha personally performed the history, physical exam and medical decision-making; I reviewed and confirmed the accuracy of the information in the transcribed note. Signed by: Julio C Marcum, 05/06/17 copies to: Chloe King MD, Kirk H MD May 06, 2017 06:11 MARKUS TAYLOR May 06, 2017 06:29
[2017-05-06 06:14] LABS: APPEARANCE,URINE CLOUDY (CLEAR,HAZY); COLOR,URINE STRAW (YELLOW); OCCULT BLOOD,URINE MODERATE (NEGATIVE); UROBILINOGEN,URINE NORMAL (NORMAL)
[2017-05-06] MEDS ORDERED: Phenazopyridine 97.5 mg Tablet PO ONE (06:30)
[2017-05-06] MEDS ORDERED: Nitrofurantoin Monohyd-Macrocryst 100 mg Capsule PO ONE (06:30)
[2017-05-06] MEDS ORDERED: NITR100 PO (06:31)
[2017-05-06 07:04] VITALS: BP 154/91; PULSE 89; RESP 16; O2SAT 97
== END 2017-05-06 07:05 | disposition home or self-care (01) ==
LOC: SED 04:57
DX: N30.00 Acute cystitis without hematuria (principal); B96.20 Unspecified Escherichia coli [E. coli] as the cause of diseases classified elsewhere; I10 Essential (primary) hypertension; E07.9 Disorder of thyroid, unspecified; E11.9 Type 2 diabetes mellitus without complications; Z79.4 Long term (current) use of insulin; Z79.84 Long term (current) use of oral hypoglycemic drugs